=== PATIENT | male | born 1965 | race Caucasian/White ===

== ENCOUNTER 2016-09-07 11:53 | Emergency (ER) | payer MEDICAID, OTHER ==
[~2016-09-07] VITALS: Ht 177.8 cm; Wt 90.7 kg
[~2016-09-07 11:53] MED LIST: DILT240C88 PO; DULO60CA45 PO; GABA-532 PO; LISI40TA4 PO; QUET300T2 PO
[2016-09-07 12:01] VITALS: BP 160/110
[2016-09-07 12:40] LABS: BASOPHILS % (AUTO) 0.5 % (0.0-2.0); DIFF TOTAL % 100 %; EOSINOPHILS # (AUTO) 0.2 /CMM (0.0-0.7); EOSINOPHILS % (AUTO) 2.7 % (0.0-6.0); HEMATOCRIT 52 % (39-51); HEMOGLOBIN 16.8 g/dL (13.5-17.5); LYMPHOCYTES # (AUTO) 2.4 /CMM (0.8-4.8); LYMPHOCYTES % (AUTO) 27.6 % (20.0-44.0); MEAN CORPUSCULAR HEMOGLOBIN 31 PG (26.0-33.0); MEAN CORPUSCULAR HGB CONC 32 g/dl (31.0-36.0); MEAN CORPUSCULAR VOLUME 95 fL (80-96); MONOCYTES # (AUTO) 0.6 /CMM (0.1-1.30); MONOCYTES % (AUTO) 7.4 % (2.0-12.0); NEUTROPHILS # (AUTO) 5.4 /CMM (1.8-8.9); NEUTROPHILS % (AUTO) 61.8 % (43.0-81.0); PLATELET COUNT (AUTO) 184 /CMM (150-450); RED BLOOD CELL COUNT(AUTO) 5.44 MIL/uL (4.5-6.0); WHITE BLOOD COUNT (AUTO) 8.6 K/uL (4.3-11.0)
[2016-09-07 12:43] LABS: ANION GAP 12 (5-14); CALCIUM, SERUM 8.9 mg/dL (8.5-10.1); CARBON DIOXIDE 30 mmol/L (21-32); CHLORIDE 107 mmol/L (98-107); CREATININE 1.5 mg/dL (0.6-1.3); GFR 49 mL/min (>60); GLUCOSE 117 mg/dL (74-106); POTASSIUM 4.8 mmol/L (3.5-5.1); SODIUM SERUM 144 mmol/L (136-145); UREA NITROGEN, BLOOD 14 mg/dL (7-18)
[2016-09-07 12:52] LABS: INR 0.96 (0.87-1.13); PROTHROMBIN TIME 10.1 SECS (9.5-12.7); TROPONIN I < 0.017 ng/mL (0.00-0.056)
[2016-09-07] MEDS ORDERED: HYDROCODONE/APAP 5/325MG 1 EACH TABLET PO ONE (13:00)
[2016-09-07] MEDS ORDERED: HYDROCODONE/APAP 5/325MG 1 EACH TABLET ONE (13:00)
[2016-09-07] MEDS ORDERED: ASPIRIN 81 MG TAB.CHEW PO ONE (14:00)
[2016-09-07] MEDS ORDERED: METO-304 PO (14:11)
[2016-09-07] MEDS ORDERED: DIVA125T2 PO (14:11)
[2016-09-07] MEDS ORDERED: DIVA500T4 PO (14:11)
[2016-09-07] MEDS ORDERED: LOSA1TAB35 PO (14:11)
[2016-09-07] MEDS ORDERED: TRAZ-147 PO (14:11)
[2016-09-07] MEDS ORDERED: CLON1TAB PO (14:11)
[2016-09-07] MEDS ORDERED: HYDR-4076 PO (14:11)
[2016-09-07] MEDS ORDERED: ASPIRIN 81 MG TAB.CHEW ONE (15:08)
== END 2016-09-07 18:15 | disposition other institution (70) ==
LOC: ER 12:00 → UNDOADMIN 15:22 → TELE 15:22
DX: G45.9 Transient cerebral ischemic attack, unspecified (principal); N28.9 Disorder of kidney and ureter, unspecified; I10 Essential (primary) hypertension
CPT/HCPCS: 36415; 70450; 70551; 71010; 80048; 84484; 85025; 85730; 87081; 93005; 93307; 93880; 99285; A4606; Z7610

== ENCOUNTER 2016-09-11 17:26 | Emergency (ER) | payer OTHER ==
[~2016-09-11] VITALS: Ht 182.9 cm; Wt 136.1 kg
[~2016-09-11 17:26] MED LIST changes: +CLON1TAB PO; -DILT240C88 PO; +DIVA125T2 PO; +DIVA500T4 PO; -DULO60CA45 PO; -GABA-532 PO; +HYDR-4076 PO; -LISI40TA4 PO; +LOSA1TAB35 PO; +METO-304 PO; -QUET300T2 PO; +TRAZ-147 PO
[2016-09-11] MEDS ORDERED: IV NS 0.9% 1,000 ML BAG IV ONE (17:30)
[2016-09-11] MEDS ORDERED: IV NS 0.9% 1,000 ML ONE ×2 (17:35→19:01)
[2016-09-11] MEDS ORDERED: IV SET PRIMARY 1 EA INFUS.SET MC ONE (17:35)
[2016-09-11 17:59] LABS: BASOPHILS # (AUTO) 0.1 /CMM (0.0-0.2); BASOPHILS % (AUTO) 0.9 % (0.0-2.0); DIFF TOTAL % 100 %; EOSINOPHILS # (AUTO) 0.1 /CMM (0.0-0.7); EOSINOPHILS % (AUTO) 1.1 % (0.0-6.0); HEMATOCRIT 50 % (39-51); HEMOGLOBIN 17.1 g/dL (13.5-17.5); LYMPHOCYTES # (AUTO) 3.9 /CMM (0.8-4.8); LYMPHOCYTES % (AUTO) 29.4 % (20.0-44.0); MEAN CORPUSCULAR HEMOGLOBIN 32 PG (26.0-33.0); MEAN CORPUSCULAR HGB CONC 34 g/dl (31.0-36.0); MEAN CORPUSCULAR VOLUME 93 fL (80-96); MONOCYTES # (AUTO) 0.9 /CMM (0.1-1.30); NEUTROPHILS # (AUTO) 8.2 /CMM (1.8-8.9); NEUTROPHILS % (AUTO) 61.6 % (43.0-81.0); PLATELET COUNT (AUTO) 214 /CMM (150-450); RED BLOOD CELL COUNT(AUTO) 5.41 MIL/uL (4.5-6.0); WHITE BLOOD COUNT (AUTO) 13.2 K/uL (4.3-11.0)
[2016-09-11 18:14] LABS: ANION GAP 16 (5-14); CALCIUM, SERUM 8.5 mg/dL (8.5-10.1); CARBON DIOXIDE 24 mmol/L (21-32); CHLORIDE 109 mmol/L (98-107); GFR 78 mL/min (>60); GLUCOSE 121 mg/dL (74-106); POTASSIUM 4.3 mmol/L (3.5-5.1); SODIUM SERUM 144 mmol/L (136-145); UREA NITROGEN, BLOOD 17 mg/dL (7-18)
[2016-09-11 18:19] LABS: INR 0.99 (0.87-1.13); PROTHROMBIN TIME 10.7 SECS (9.5-12.7)
[2016-09-11 18:21] LABS: TROPONIN I < 0.017 ng/mL (0.00-0.056)
[2016-09-11 18:24] LABS: LACTIC ACID 2.4 mmol/L (0.4-2.0)
[2016-09-11 18:26] LABS: ALANINE AMINOTRANSFERASE 22 U/L (12-78); ASPARTATE AMINOTRANSFERASE 20 U/L (15-37); BILIRUBIN,TOTAL 0.2 mg/dL (0.2-1.0); TOTAL PROTEIN, SERUM 7.3 g/dL (6.4-8.2)
[2016-09-11 18:27] LABS: INDIRECT BILIRUBIN 0.2 mg/dL (0.0-1.1)
[2016-09-11 18:51] LABS: KETONES,URINE NEGATIVE (NEGATIVE); LEUKOCYTE ESTERASE ,URINE NEGATIVE (NEGATIVE)
[2016-09-11 18:54] LABS: *LACTIC ACID REFLEX FLAG YES
[2016-09-11 18:59] LABS: ADD UA MICROSCOPIC YES
[2016-09-11] MEDS ORDERED: IV NS 0.9% 1,000 ML IV ONE (19:00)
[2016-09-11] MEDS ORDERED: IV SET PRIMARY PUMP SET 1 EA INFUS.SET MC ONE ×2 (19:01→20:03)
[2016-09-11 19:04] LABS: ADD URINE CULTURE NO; WBC,URINE 0-2 /HPF (0-3)
[2016-09-11 19:14] LABS: CANNABINOID, URINE NEGATIVE (NEGATIVE); PHENCYCLIDINE SCREEN,URINE NEGATIVE (NEGATIVE)
[2016-09-11] MEDS ORDERED: PIPERACILLIN /TAZOBACTAM 3.375 G in IV D5W 50 ML IV ONE (20:00)
[2016-09-11] MEDS ORDERED: IV D5W 50 ML IV ONE (20:03)
[2016-09-11] MEDS ORDERED: PIPERACILLIN /TAZOBACTAM 3.375 G VIAL IV ONE (20:03)
[2016-09-11 21:43] VITALS: BP 140/90
== END 2016-09-11 21:43 | disposition home or self-care (01) ==
LOC: ER 17:33
DX: R41.82 Altered mental status, unspecified (principal); I10 Essential (primary) hypertension; R79.1 Abnormal coagulation profile; R79.89 Other specified abnormal findings of blood chemistry
CPT/HCPCS: 36415; 51702; 70450; 71010 ×2; 72125; 80048; 80076; 80305; 81001; 82140; 82962; 83605 ×2; 84484; 85025; 85730; 87040 ×2; 93005; 96360; 96361; 96365; 99291; A4606; A6402; G0480; J2543; J7030 ×2; J7060; Z7610; 81000-TC

== ENCOUNTER 2016-11-10 12:11 | Inpatient (IN) | payer OTHER ==
[~2016-11-10] VITALS: Ht 177.8 cm; Wt 113.9 kg
[2016-11-10 12:42] LABS: BASOPHILS # (AUTO) 0.1 /CMM (0.0-0.2); BASOPHILS % (AUTO) 0.7 % (0.0-2.0); EOSINOPHILS # (AUTO) 0.3 /CMM (0.0-0.7); EOSINOPHILS % (AUTO) 2.6 % (0.0-6.0); HEMATOCRIT 50 % (39-51); HEMOGLOBIN 16.7 g/dL (13.5-17.5); LYMPHOCYTES # (AUTO) 2.6 /CMM (0.8-4.8); LYMPHOCYTES % (AUTO) 23.7 % (20.0-44.0); MEAN CORPUSCULAR HEMOGLOBIN 32 PG (26.0-33.0); MEAN CORPUSCULAR HGB CONC 34 g/dl (31.0-36.0); MEAN CORPUSCULAR VOLUME 95 fL (80-96); MONOCYTES # (AUTO) 0.7 /CMM (0.1-1.30); MONOCYTES % (AUTO) 6.1 % (2.0-12.0); NEUTROPHILS # (AUTO) 7.4 /CMM (1.8-8.9); NEUTROPHILS % (AUTO) 66.9 % (43.0-81.0); PLATELET COUNT (AUTO) 190 /CMM (150-450); RDW COEFFICIENT OF VARIATION 12.6 (11.5-15.0); RED BLOOD CELL COUNT(AUTO) 5.23 MIL/uL (4.5-6.0); WHITE BLOOD COUNT (AUTO) 11.1 K/uL (4.3-11.0)
[2016-11-10 12:51] LABS: CALCIUM, SERUM 9.6 mg/dL (8.5-10.1); CARBON DIOXIDE 26 mmol/L (21-32); CHLORIDE 108 mmol/L (98-107); CREATININE 1.2 mg/dL (0.6-1.3); GFR 63 mL/min (>60); GLUCOSE 102 mg/dL (74-106); POTASSIUM 4.6 mmol/L (3.5-5.1); SODIUM SERUM 142 mmol/L (136-145); UREA NITROGEN, BLOOD 11 mg/dL (7-18)
[2016-11-10 12:55] LABS: INR 0.94 (0.87-1.13); PROTHROMBIN TIME 9.8 SECS (9.5-12.7)
[2016-11-10 13:12] LABS: TROPONIN I < 0.017 ng/mL (0.00-0.056)
[2016-11-10] MEDS ORDERED: AMLODIPINE BESYLATE 5 MG TABLET PO ONE (15:00)
[2016-11-10] MEDS ORDERED: AMLODIPINE BESYLATE 5 MG TABLET ONE (15:02)
[2016-11-10 17:00] VITALS: BP 160/84
[2016-11-10] MEDS ORDERED: hydrALAZINE HCL 25 MG TABLET PO PRN (18:30)
[2016-11-10] MEDS ORDERED: LOSARTAN POTASSIUM 50 MG TABLET PO SCH (18:30)
[2016-11-10 20:00] VITALS: BP_SYST 142; BP_SYST 148; BP_SYST 167; BP_DIAS 78; BP_DIAS 87; BP_DIAS 93
[2016-11-11] VITALS: BP 162/84
[2016-11-11 04:00] VITALS: BP 154/85
[2016-11-11 06:13] LABS: BASOPHILS % (AUTO) 0.3 % (0.0-2.0); EOSINOPHILS # (AUTO) 0.3 /CMM (0.0-0.7); HEMATOCRIT 48 % (39-51); HEMOGLOBIN 16.2 g/dL (13.5-17.5); LYMPHOCYTES # (AUTO) 3.5 /CMM (0.8-4.8); LYMPHOCYTES % (AUTO) 31.4 % (20.0-44.0); MEAN CORPUSCULAR HEMOGLOBIN 32 PG (26.0-33.0); MEAN CORPUSCULAR HGB CONC 34 g/dl (31.0-36.0); MEAN CORPUSCULAR VOLUME 95 fL (80-96); MONOCYTES # (AUTO) 0.9 /CMM (0.1-1.30); MONOCYTES % (AUTO) 7.9 % (2.0-12.0); NEUTROPHILS # (AUTO) 6.3 /CMM (1.8-8.9); NEUTROPHILS % (AUTO) 57.4 % (43.0-81.0); PLATELET COUNT (AUTO) 192 /CMM (150-450); RDW COEFFICIENT OF VARIATION 13.3 (11.5-15.0); RED BLOOD CELL COUNT(AUTO) 5.03 MIL/uL (4.5-6.0)
[2016-11-11 06:29] LABS: ALBUMIN 3.6 g/dL (3.4-5.0); BILIRUBIN,TOTAL 0.3 mg/dL (0.2-1.0); CALCIUM, SERUM 8.7 mg/dL (8.5-10.1); CREATININE 1.3 mg/dL (0.6-1.3); TOTAL PROTEIN, SERUM 6.5 g/dL (6.4-8.2)
[2016-11-11 06:38] LABS: THYROID STIMULATING HORMONE 3.315 uIU/mL (0.358-3.74)
[2016-11-11 08:00] VITALS: BP_SYST 154; BP_SYST 169; BP_SYST 176; BP_DIAS 67; BP_DIAS 82; BP_DIAS 85; BP_DIAS 95
[2016-11-11] MEDS ORDERED: AMLODIPINE BESYLATE 10 MG TABLET PO SCH (09:00)
[2016-11-11] MEDS ORDERED: ACETAMINOPHEN 325 MG TABLET PO PRN (09:00)
[2016-11-11] MEDS ORDERED: hydrALAZINE HCL 25 MG TABLET PO SCH (09:00)
[2016-11-11 12:00] VITALS: BP 159/93
[2016-11-11] MEDS ORDERED: AMLO10TA2 PO (14:01)
== END 2016-11-11 15:17 | disposition home or self-care (01) | DRG 201 ==
LOC: ER 12:12 → TELE-TD 16:14
PROVIDERS: ADMIT Internal Medicine; ATTEND Internal Medicine
DX: R00.1 Bradycardia, unspecified (principal); I10 Essential (primary) hypertension; F32.9 Major depressive disorder, single episode, unspecified; R55 Syncope and collapse; E78.5 Hyperlipidemia, unspecified; Z86.73 Personal history of transient ischemic attack (TIA), and cerebral infarction without residual deficits; F17.210 Nicotine dependence, cigarettes, uncomplicated
CPT/HCPCS: 36415; 70450-TC; 71010-TC; 80048-TC; 80053-TC; 84443-TC; 84484-TC; 85025-TC; 85730-TC; 87081-TC; A4606; Z7610